=== PATIENT | male | born 1950 | race Caucasian/White ===

== ENCOUNTER → 2017-12-24 | Outpatient (CLI) | payer OTHER ==
[~2017-12-24] MED LIST: ALDACTONE25 MG PO; ASPIR 8181 MG PO; ATENOLOL 100MG100 M2 PO; ATORVASTATIN CA40 MG PO; BASAGLAR K100 UNIT/1 SUBQ; BYSTOLIC 5 MG5 M1 PO; BYSTOLIC20 MG PO; CARDIZEM CD180 MG PO; CINNAMON PLUS1 EACH PO; DEMADEX20 MG PO; DIGOXIN250 MCG PO; DIOVAN320 MG PO; ELIQUIS5 MG PO; ENBREL50 MG/1 M1 SQ; FISH OIL 1,001000 M2 PO; GLUCOPHAGE XR500 MG PO; HUMALOG MI100 UNIT/2 SUBQ; JANUVIA100 MG PO; LANTUS SOL100 UNIT/1 SUBQ; LANTUS100 UNIT/M SUBQ; MAGNESIUM OXID400 MG PO; MOBIC15 MG PO; MULTAQ 400 MG400 MG PO; NORVASC5 MG PO; NOVOLOG100 UNIT/1 SQ; OMEPRAZOLE 20 M20 M1 PO; PHENERGAN 25 MG25 M1 PO; POTASSIUM20 PO; PRILOSEC20 MG PO; PROMS25 WY RECTAL; SAVAYSA60 MG PO; SPIRONOLACTONE25 M1 PO; TOUJEO SOL300 UNIT/1 SQ; TRICOR145 MG PO; UNICOMPLEX M TA1 TA1 PO; VICTOZA0.6 MG/0.1 SUBQ; VITAMIN B-6100 MG PO; VITAMIN D1000 UNI1 PO; VITAMINC500 PO
[2017-12-24 08:20] LABS: HEMATOCRIT 47.1 % (42.0-52.0); HEMOGLOBIN 16.5 gm/dL (14.0-18.0); MCH 32.9 pg (26.0-34.0); MCHC 35.1 g/dL (28.0-37.0); MCV 93.5 fL (80.0-100.0); RBC 5.03 mil/uL (4.50-6.00); RDW 13.9 % (10.5-14.5); WBC 9.9 thou/uL (4.0-11.0)
[2017-12-24 08:32] LABS: CALCIUM 8.9 mg/dL (8.5-10.1); CREATININE 1.2 mg/dL (0.7-1.3)
[2017-12-24 08:37] LABS: ALBUMIN 3.9 g/dL (3.4-5.0); TOTAL BILIRUBIN 1.2 mg/dL (<0.1-1.0); TOTAL PROTEIN 7.3 g/dL (6.4-8.2)
== END ==
LOC: CAT 07:51
PROVIDERS: Internal Medicine Cardiovascular Disease
DX: I48.0 Paroxysmal atrial fibrillation (principal); I25.10 Atherosclerotic heart disease of native coronary artery without angina pectoris; E27.9 Disorder of adrenal gland, unspecified

== ENCOUNTER 2017-12-26 13:56 | Observation (INO) | payer OTHER ==
[~2017-12-26] VITALS: Ht 180.3 cm; Wt 100.6 kg
--- NOTE | ~2017-12-26 | D ---
[facility] [place] [address] DISCHARGE SUMMARY Name: KARTIK CRUZ Room #: 211-P [facility] M.Elodia#: [id number] Admission: 12/26/17 Attend Phys: Woody Landeros MD Discharge: 12/27/17 Date of : 54 Report #: [id number] THIS REPORT FOR: //name// CC: RAYMOND silvestre Jose Redding BLANCA Landeros DATE OF SERVICE: 12/27/2017 DISCHARGE DIAGNOSIS: Atrial fibrillation. PROCEDURES PERFORMED: AFib ablation. HISTORY OF PRESENT ILLNESS: The patient is a 67-year-old male with history of recurrent atrial fibrillation, here for an ablation. The patient underwent successful AFib ablation with isolation of the pulmonary veins with jainism of sinus rhythm. He did have termination of AFib with isolation of the right inferior pulmonary vein, but did have some recurrence and therefore, additional freezes of the right inferior pulmonary vein region were performed and at that point, we could restore sinus rhythm. HOSPITAL COURSE: The patient was admitted to the hospital, was placed in the CCU overnight. The following day, I did start the patient on IV amiodarone infusion and discontinued his Multaq. He remained in sinus rhythm overnight on telemetry. He denied any chest pain, shortness of breath, fevers, chills or chest pain. PHYSICAL EXAMINATION: HEART: Regular rate and rhythm. LUNGS: Clear to auscultation bilaterally. ABDOMEN: Soft, nontender. EXTREMITIES: The right groin showed no significant bruising or hematoma. DISCHARGE INSTRUCTIONS: As such, he was deemed stable for discharge home with instructions to follow up with me in 1 month. We discharged him on amiodarone 400 mg a day for 2 weeks and he will decrease the dose to 200 mg at that point. We also discontinued his diltiazem and his Multaq therapy, but he will continue with all other medications including his Bystolic and his anticoagulation. <ELECTRONICALLY SIGNED> By: Woody Landeros MD 12/30/17 [id number] [id number] Woody Landeros MD /nt
--- NOTE | ~2017-12-26 | P ---
[facility] [place] [address] PROCEDURE REPORT Name: KARTIK CRUZ Room #: 211-P [facility] M.RDelilah#: [id number] Admission: 12/26/17 Attend Phys: Woody Landeros MD Discharge: 12/27/17 Date of : 54 Report #: [id number] THIS REPORT FOR: //name// CC: FAM konrad Jose Redding BLANCA KRYS Landeros DATE OF SERVICE: 12/26/2017 PREOPERATIVE DIAGNOSIS: Atrial fibrillation. POSTOPERATIVE DIAGNOSIS: Atrial fibrillation. INDICATION FOR PROCEDURE: The patient is a 67-year-old male with history of atrial fibrillation, here for an ablation. ANESTHESIA: The patient underwent general anesthesia with no anesthesia related complications. DESCRIPTION OF PROCEDURE: The patient underwent informed consent. We discussed the details of the procedure including the risks, which include but not limited to bleeding, vascular damage, cardiac perforation as well as stroke or CO. He understood these risks and is willing to proceed. The patient was brought to the EP laboratory in a fasting and sedated state, prepped and draped in a sterile fashion. I injected lidocaine to the right groin region, obtained access to the right femoral vein x 3, placing an 8-Qatari, 9-Qatari and 7-Qatari short sheath using the modified Seldinger technique. Next, a decapolar catheter was placed in the coronary sinus. Of note, maintenance of the decapolar in the coronary sinus was somewhat challenging and it fell out several times. Next, an intracardiac ultrasound camera was placed in the right atrium and I created a detailed 3D geometry using [employer] and this demonstrated 2 left and 2 right pulmonary veins. Of note, his heart was somewhat rotated, which actually made placing catheters into the right atrium somewhat challenging and also made even placing my wire into the SVC challenging. The patient was then systemically heparinized and a transseptal was performed. This was quite straightforward, had nice stick in the mid anterior septum. Transseptal was performed with the SL1 sheath and a [place] needle. The patient was systemically heparinized prior to the transseptal. Next, I placed a Lasso catheter into the left atrium and obtained baseline measurements and voltage mapping. At baseline, the patient was in atrial fibrillation today with a ventricular rate of 735 milliseconds, QRS duration 140 milliseconds, QT interval 390 milliseconds. Next, I exchanged my SL1 sheath for the cryo sheath and started isolating the veins. I performed 2 freezes in the left superior pulmonary vein, each were 4 minutes' duration. The [facility] [address] [place] [address] PROCEDURE REPORT Name: KARTIK CRUZ Room #: [facility] M.R.#: [id number] Admission: 12/26/17 Attend Phys: Woody Landeros MD Discharge: 12/27/17 Date of : 54 Report #: [id number] left superior pulmonary vein isolated within 36 seconds of the first freeze. There were some large signals that were remaining, but these appeared to be far field left atrial appendage signals. I turned my attention to the left inferior pulmonary vein. I performed two 4-minute freezes. This vein isolated during the first freeze within 26 seconds. I then turned my attention to the right-sided veins. Interestingly, the cryo sheath would easily engage the right inferior pulmonary vein. I had a difficult time getting it to go into the right superior pulmonary vein. I think this was somewhat due to how his heart was rotated. Therefore, I went ahead and isolated the right inferior pulmonary vein. I performed two 4-minute freezes in this vein and there was still conduction, but his atrial fibrillation did terminate, which was interesting; however, after about 3-5 minutes, he was back in AFib. I then performed a third freeze and the vein isolated within 12 seconds and I performed a 60-second freeze. I then performed another 60-second freeze to take care of this area where it appeared the vein had isolated. I then turned attention to the right superior pulmonary vein. I performed two 4-minute freezes. The vein isolated during the second freeze within 90 seconds. Therefore, I performed a third freeze of 160-second duration. We then performed a cardioversion and the patient went back into atrial fibrillation. While the patient was in sinus rhythm, it appeared that there were sharp potentials in the left superior pulmonary vein. So therefore, I performed 1 additional 4-minute freeze and this appeared to be isolated. I then performed a more atrial freeze, it is a kind of wide in the area of ablation in this left superior vein location. We therefore cardioverted the patient again at this point and we were able to pace around the Lasso and there was no evidence of connection of this vein, but the patient did go back into AFib. We therefore went back to this right inferior pulmonary vein and I decided to isolate the area of tissue below the right inferior pulmonary vein. I performed two 4-minute freezes in this vein. We then performed another cardioversion and this time, the patient remained in sinus rhythm. We did perform a pre and post-ablation voltage map and it appeared that we had created a wide circumferential ablation around the pulmonary veins. Post-ablation, the patient was in sinus rhythm with sinus cycle length of 670 milliseconds, [place] interval 135 milliseconds, QRS duration 140 milliseconds, QT interval 440 milliseconds. As such, sheaths were pulled to the right atrium. The patient received systemic protamine and once ACT was within acceptable range, catheters and sheaths were pulled, hemostasis obtained and the patient awoke neurologically and hemodynamically intact. CONCLUSIONS: Successful isolation of the 4 pulmonary veins with jain of sinus rhythm. <ELECTRONICALLY SIGNED> By: Woody Landeros MD 12/30/17 1454 [id number] Woody Landeros MD /nt
[2017-12-26 07:10] VITALS: BP 147/82
[2017-12-26 07:53] LABS: CREATININE 1.2 mg/dL (0.7-1.3); POTASSIUM 3.3 mmol/L (3.5-5.1)
[2017-12-26 07:55] LABS: PLATELET COUNT 177 thou/uL (150-400); WBC 9.3 thou/uL (4.0-11.0)
[2017-12-26 07:57] LABS: APTT 28.2 Seconds (24.5-32.8); HEMATOCRIT 46.2 % (42.0-52.0); HEMOGLOBIN 16.3 gm/dL (14.0-18.0); INR 1.1; MCH 33.1 pg (26.0-34.0); MCHC 35.4 g/dL (28.0-37.0); MCV 93.6 fL (80.0-100.0); PROTIME 11.6 Seconds (9.3-11.4); RBC 4.93 mil/uL (4.50-6.00); RDW 13.5 % (10.5-14.5)
[2017-12-26 07:59] LABS: ALBUMIN 3.8 g/dL (3.4-5.0); TOTAL BILIRUBIN 1.1 mg/dL (<0.1-1.0); TOTAL PROTEIN 7.4 g/dL (6.4-8.2)
[2017-12-26 08:52] LABS: ABSOLUTE NEUTROPHILS 4.9 thou/uL (1.4-8.2); PLATELET ESTIMATE NORMAL
[2017-12-26 15:31] VITALS: BP 159/94
[2017-12-26 19:28] VITALS: BP 147/85
[2017-12-27 00:22] VITALS: BP 136/83
[2017-12-27 05:16] VITALS: BP 159/88
[2017-12-27 07:12] VITALS: BP 155/96
[2017-12-27] MEDS ORDERED: PACERONE 200 M200 M1 PO (08:15)
[2017-12-27 09:19] VITALS: BP 155/96
[2017-12-27 10:22] VITALS: BP 155/96
== END 2017-12-27 11:00 | disposition home or self-care (01) ==
LOC: CATH 13:56 → 2N 13:57 → CATH 14:08 → 2N 12-27 11:00
PROVIDERS: Internal Medicine Cardiovascular Disease
DX: I48.91 Unspecified atrial fibrillation (principal); I10 Essential (primary) hypertension; I42.9 Cardiomyopathy, unspecified; E78.00 Pure hypercholesterolemia, unspecified; R06.00 Dyspnea, unspecified; E11.9 Type 2 diabetes mellitus without complications; M19.90 Unspecified osteoarthritis, unspecified site; Z79.4 Long term (current) use of insulin
CPT/HCPCS: 62110; 62900; 65020; 65040; 70005

== ENCOUNTER → 2020-03-04 | Outpatient (CLI) | payer OTHER ==
[~2020-03-04] MED LIST changes: +PACERONE 200 M200 M1 PO
== END ==
LOC: SJCVC 10:50
PROVIDERS: ATTEND Internal Medicine Cardiovascular Disease
DX: I48.0 Paroxysmal atrial fibrillation (principal); E78.00 Pure hypercholesterolemia, unspecified; E11.9 Type 2 diabetes mellitus without complications; I42.8 Other cardiomyopathies; I10 Essential (primary) hypertension; Z79.82 Long term (current) use of aspirin; Z79.4 Long term (current) use of insulin; Z79.899 Other long term (current) drug therapy; Z82.49 Family history of ischemic heart disease and other diseases of the circulatory system

== ENCOUNTER → 2020-05-05 | Outpatient (CLI) | payer OTHER | LOC: SJCVC 14:20 | PROVIDERS: ATTEND Internal Medicine Cardiovascular Disease | DX: R94.31 Abnormal electrocardiogram [ECG] [EKG] (principal); I51.7 Cardiomegaly; I48.0 Paroxysmal atrial fibrillation; I48.92 Unspecified atrial flutter ==

== ENCOUNTER → 2020-11-21 | Outpatient (CLI) | payer OTHER | LOC: SJCVCIMAG 09:37 | PROVIDERS: ATTEND Internal Medicine Cardiovascular Disease | DX: I48.91 Unspecified atrial fibrillation (principal); I10 Essential (primary) hypertension; E78.5 Hyperlipidemia, unspecified; E11.9 Type 2 diabetes mellitus without complications; E78.00 Pure hypercholesterolemia, unspecified; Z79.82 Long term (current) use of aspirin; Z79.4 Long term (current) use of insulin; Z79.899 Other long term (current) drug therapy ==

== ENCOUNTER → 2021-05-02 | Outpatient (CLI) | payer OTHER | LOC: SJCVC 11:23 | PROVIDERS: ATTEND Internal Medicine Cardiovascular Disease | DX: I49.1 Atrial premature depolarization (principal); I48.92 Unspecified atrial flutter; I48.0 Paroxysmal atrial fibrillation; I10 Essential (primary) hypertension; E11.9 Type 2 diabetes mellitus without complications; E78.00 Pure hypercholesterolemia, unspecified; Z79.82 Long term (current) use of aspirin; Z79.4 Long term (current) use of insulin; Z79.899 Other long term (current) drug therapy; Z95.828 Presence of other vascular implants and grafts; Z82.49 Family history of ischemic heart disease and other diseases of the circulatory system ==